=== PATIENT | female | born 1950 | race Caucasian/White ===

== ENCOUNTER 2018-01-06 21:17 | Observation (INO) | payer MEDICARE, OTHER ==
[2018-01-06] MEDS ORDERED: Dextrose 50% Abboject 50 ML SYRINGE ONE (21:58)
[2018-01-06 22:00] LABS: #Basophils 0.1 thou/uL (0.0-0.2); #Eosinphils 0.1 thou/uL (0.0-0.7); #Lymphocytes 4.8 thou/uL (1.20-3.40); #Monocytes 1.1 thou/uL (0.11-0.59); #Neutrophils 8.2 thou/uL (1.40-6.50); %Lymphocytes 33.2 % (21.0-51.0); %Monocytes 7.5 % (0.0-10.0); %Neutrophils 57.3 % (42.0-75.0); Hemoglobin 15.4 g/dL (12.0-16.0); Mean Corpuscular HGB CONC 34.3 g/dL (32.0-36.0); Mean Corpuscular Hemoglobin 31.6 pg (27.0-31.0); Mean Corpuscular Volume 92.1 fL (78.0-98.0); Mean Platelet Volume 6.9 fL (7.4-10.4); Platelet Count 245 thou/uL (130-400); RBC Distribution Width 12.1 % (11.5-14.5); Red Blood Cell (RBC) Count 4.87 mill/uL (4.20-5.40); White Blood Cell (WBC) Count 14.4 thou/uL (4.8-10.8)
--- NOTE | 2018-01-06 22:04 | RAD ---
PORTABLE UPRIGHT FRONTAL CHEST RADIOGRAPH 01/06/18 COMPARISON: 06/28/15 HISTORY: Altered mental status. FINDINGS: Stable cervical spine hardware present, incompletely assessed on this exam. Stable postoperative clip s noted in right upper quadrant of abdomen. There is atherosclerotic calcification in the aortic arch . There is no pneumothorax, pleural fluid, focal consolidation or alveolar edema. IMPRESSION: No acute findings. POS: [facility]
[2018-01-06 22:05] LABS: PTT 25.6 SEC (22.9-36.1); Prothrombin Time 13.6 SEC (12.0-14.7)
[2018-01-06 22:12] LABS: Acetaminophen Less than 6.0 mcg/mL (10.0-30.0); Alcohol Less than 10 mg/dL (Less than 10); Lipase 22 U/L (8-78); Salicylate Less than 8.0 mg/dL (15.0-30.0)
--- NOTE | 2018-01-06 22:12 | CT ---
HEAD CT WITHOUT CONTRAST: 01/06/18 COMPARISON: 05/28/09. HISTORY: Blurred vision and slurred speech, right sided facial droop. TECHNIQUE: Serial axial CT imaging at 5 mm intervals from vertex through skull base without contrast. FINDINGS: There is mucosal thickening involving the maxillary sinus on the right and the sphenoid sinus on the right. There is no displaced calvarial fracture. There is no intracranial hemorrhage, midline shift, mass effect or ventricular enlargement. IMPRESSION: No acute findings. Results called to Dr. Merida at 9:36 p.m., 01/06/18. Code CR POS: [facility]
[2018-01-06 22:16] LABS: CKMB 1.5 ng/mL (0-6.6); Troponin I 0.018 ng/mL (< 0.028)
[2018-01-06 22:22] LABS: ALT (SGPT) 12 U/L (8-55); AST (SGOT) 14 U/L (5-34); Albumin 4.6 g/dL (3.4-4.8); Alkaline Phosphatase 68 U/L (40-150); Anion Gap 11 mmol/L (10-20); BUN (Urea Nitrogen) 23 mg/dL (9.8-20.1); Bilirubin, Total 1.2 mg/dL (0.2-1.2); CK (CPK) 36 U/L (29-168); Calc. Creatinine Clearance 0 mL/min (70-130); Carbon Dioxide 26 mmol/L (23-31); Chloride 106 mmol/L (98-107); Estimated GFR-MDRD 52; Globulin 2.4 g/dL (2.4-3.5); Magnesium 2.5 mg/dL (1.6-2.6); Sodium 139 mmol/L (136-145)
[2018-01-06 23:06] LABS: Glucose 121 mg/dL (80-115)
[2018-01-06 23:50] LABS: Bilirubin Negative (Negative); Blood, Urine Negative (Negative); Clarity CLEAR (Clear); Glucose, Urine (Dipstick) 100 mg/dL (Negative); Leukocyte Trace (Negative); Nitrite Negative (Negative); Protein, Urine (Dipstick) Negative (Neg-Trace); Specific Gravity, Urine 1.008 (1.002-1.036); Urobilinogen 0.2 mg/dL (0.2-1.0); pH, Urine 5.5 (5.0-9.0)
[2018-01-06 23:53] LABS: Bacteria/HPF None Seen HPF (None Seen); Hyaline Casts/LPF 0-3 HYALINE CAST LPF (0-3 Hyaline); Pathc Cast-AUWi Flag 0.58 (0-2.49); RBC/HPF None Seen HPF (0-3); Squamous Epithelial 0-3 HPF (0-3); WBC/HPF 0-3 HPF (0-3)
[2018-01-06 23:58] LABS: Amphetamine Not Detected (NotDetected); Barbiturates Screen Not Detected (NotDetected); Benzodiazepine Screen Not Detected (NotDetected); Cocaine Metabolite Screen Not Detected (NotDetected); Medtox Control Line Valid? VALID (VALID); Medtox Reader # READER 1; Methadone Not Detected (NotDetected); Methamphetamine Not Detected (NotDetected); Opiate Screen Not Detected (NotDetected); Oxycodone Screen Not Detected (NotDetected); Phencyclidine (PCP) Not Detected (NotDetected); THC/Cannabinoid Screen Not Detected (NotDetected); Tricyclic Screen Detected (NotDetected)
[2018-01-07] MEDS ORDERED: Pregabalin 50 MG CAP PO SCH (04:45)
[2018-01-07] MEDS ORDERED: rOPINIRole HCl 1 MG TAB PO SCH ×2 (04:45→21:00)
[2018-01-07 05:29] VITALS: BMI 37.6
[2018-01-07] MEDS: Dextrose 5 %-0.45 % NaCl 1,000 ML IV SCH ×2 (05:41→12:52)
[2018-01-07 08:36] LABS: #Basophils 0.1 thou/uL (0.0-0.2); #Eosinphils 0.1 thou/uL (0.0-0.7); #Lymphocytes 4.1 thou/uL (1.20-3.40); #Monocytes 0.9 thou/uL (0.11-0.59); #Neutrophils 5.2 thou/uL (1.40-6.50); %Basophils 0.8 % (0.0-1.0); %Eosinophils 1.4 % (0.0-10.0); %Lymphocytes 39.3 % (21.0-51.0); %Monocytes 8.8 % (0.0-10.0); %Neutrophils 49.7 % (42.0-75.0); Hemoglobin 13.8 g/dL (12.0-16.0); Mean Corpuscular HGB CONC 33.5 g/dL (32.0-36.0); Mean Corpuscular Hemoglobin 31.1 pg (27.0-31.0); Mean Corpuscular Volume 93.1 fL (78.0-98.0); Mean Platelet Volume 7.5 fL (7.4-10.4); Platelet Count 207 thou/uL (130-400); RBC Distribution Width 12.3 % (11.5-14.5); Red Blood Cell (RBC) Count 4.44 mill/uL (4.20-5.40); White Blood Cell (WBC) Count 10.4 thou/uL (4.8-10.8)
[2018-01-07 09:21] LABS: Anion Gap 7 mmol/L (10-20); BUN (Urea Nitrogen) 21 mg/dL (9.8-20.1); Calc. Creatinine Clearance 99 mL/min (70-130); Carbon Dioxide 28 mmol/L (23-31); Chloride 111 mmol/L (98-107); Estimated GFR-MDRD 61; Glucose 116 mg/dL (80-115); Magnesium 2.4 mg/dL (1.6-2.6); Potassium 3.9 mmol/L (3.5-5.1); Sodium 142 mmol/L (136-145)
[2018-01-07] MEDS ORDERED: Ondansetron HCl/PF 4 MG/2 ML Vial IVP PRN (12:24)
[2018-01-07] MEDS ORDERED: Ondansetron ODT 4 MG TAB PO PRN (12:24)
[2018-01-07] MEDS ORDERED: Acetaminophen 650 MG Suppository PR PRN (12:24)
[2018-01-07] MEDS ORDERED: hydrOXYzine 10 MG TAB PO PRN (12:24)
[2018-01-07] MEDS ORDERED: Acetaminophen 325 MG TAB PO PRN (12:24)
[2018-01-07] MEDS ORDERED: Enoxaparin Sodium 40 MG/0.4 ML SYRINGE SC SCH (12:30)
[2018-01-07] MEDS: Acetaminophen/Codeine 30-300mg Tablet PO PRN (12:40)
[2018-01-07] MEDS: Pregabalin 50 MG CAP PO SCH ×2 (15:13→22:15)
[2018-01-07] MEDS ORDERED: Nortriptyline 10 MG CAP PO SCH (21:00)
[2018-01-07] MEDS ORDERED: Famotidine 20 MG TAB PO SCH (21:00)
[2018-01-07] MEDS: levETIRAcetam 500 mg/5 ml Oral Solution PO SCH (22:20)
[2018-01-08] MEDS: Acetaminophen/Codeine 30-300mg Tablet PO PRN ×2 (01:04→07:26)
[2018-01-08] MEDS ORDERED: Levothyroxine Sodium 25 MCG TAB PO SCH ×2 (06:00→09:00)
[2018-01-08 08:04] VITALS: BP 120/58; TEMP 97.8
[2018-01-08] MEDS: levETIRAcetam 500 mg/5 ml Oral Solution PO SCH (08:21)
[2018-01-08] MEDS: Pregabalin 50 MG CAP PO SCH (08:21)
[2018-01-08] MEDS ORDERED: Enoxaparin Sodium 40 MG/0.4 ML SYRINGE SC SCH (09:00)
[2018-01-08] MEDS ORDERED: Lisinopril 10 MG TAB PO SCH (09:00)
--- NOTE | 2018-01-08 10:44 | DIS ---
DATE OF ADMISSION: 01/07/2018 DATE OF DISCHARGE: 01/08/2018 PRIMARY CARE PHYSICIAN: Dr. Lisbet Patterson. DISCHARGE DIAGNOSES: 1. Hypoglycemia. 2. Metabolic encephalopathy, resolved. 3. Essential hypertension. 4. Degenerative joint disease. 5. Raynaud's disease. 6. Hypothyroidism. CONSULTATIONS: None. PROCEDURES: None. HISTORY AND PHYSICAL: Ms. Gamble is a 67-year-old female, who became altered and almost unresponsive while at [facility] the night of admission. She presented to the emergency department and was found to h ave a field blood glucose of 130, but 68 on arrival to the emergency department. She was given D50 a nd we were called for admission. HOSPITAL COURSE: The patient was accepted by the rug repairer and placed on observation. She was admi tted the following morning by myself. At that point, she was back to her baseline, but did not quite "feel right." She was observed overnight, and this morning, was feeling back to her baseline, able to get up and walk around and had no episodes of hypoglycemia. She was, otherwise, stable for discha rge with outpatient followup. PHYSICAL EXAMINATION: The patient was seen and examined on the day of discharge. Discharge plan and disposition discussed with patient and her [id number] at the bedside. DISCHARGE MEDICATIONS: Resume all home medications. No new medications added. FOLLOWUP APPOINTMENT: Dr. Patterson within a week. DISCHARGE CONDITION: Stable. DISPOSITION: Being discharged to home via private vehicle. DISCHARGE ACTIVITY: As tolerated. DISCHARGE DIET: Heart healthy recommended.
--- NOTE | 2018-01-08 11:09 | HP ---
DATE OF ADMISSION: 01/07/2018 TIME OF SERVICE: 09:45 PRIMARY CARE PHYSICIAN: Lisbet Patterson M.D. CHIEF COMPLAINT: Altered mental status. HISTORY OF PRESENT ILLNESS: Ms. Gamble is a 67-year-old white female with a history of Raynaud's dis ease, hypertension, GERD, and degenerative joint disease, who presented to the emergency department v ia EMS. The patient was at [facility], and while there, became unresponsive. She remembers feeling kind of "funny " and then everything kind of fading out. She denied any chest pain or shortness of breath, no palpi tations, no nausea or vomiting. On arrival, EMS noted to her to have normal vital signs, glucose was 130. She was transported to our emergency department for evaluation. On arrival here, her glucose was 68. She was given D50. She had a normal lab except for an elevated white blood cell count and negative workup otherwise. We were subsequently called for admit. The patient was accepted by the yam curer and held overnight. Subsequently, being admitted this [facility]. She has no other current complaints other than right leg pain. No fevers or chills, no nausea, vomit ing, no diarrhea, constipation. She "does not feel right." PAST MEDICAL HISTORY: 1. Raynaud's disease. 2. Hypertension, essential. 3. Gastroesophageal reflux disease. 4. Anxiety and depression. PAST SURGICAL HISTORY: 1. Cholecystectomy. 2. Bilateral tubal ligation, remotely. 3. Appendectomy. 4. Left arm surgery for nerve damage. 5. Partial thyroidectomy on the right. 6. C-spine surgery. 7. x2. 8. Umbilicus repair after rupture as an infant. 9. Right knee surgery x2. She is postop a knee revision procedure done on 02/06. FAMILY HISTORY: Negative for clotting or bleeding disorder. No immune dysfunction. SOCIAL HISTORY: Negative for alcohol, tobacco, or drug. She is . accompanies her. REVIEW OF SYSTEMS: All systems reviewed and negative except stated as per HPI. CURRENT MEDICATIONS: 1. Levothyroxine. 2. Requip 4 mg p.o. at bedtime. 3. Lisinopril 10 mg daily. 4. Keppra 250 p.o. b.i.d. 5. Lyrica 200 mg p.o. t.i.d. 6. Nortriptyline 20 mg p.o. at bedtime. 7. Tylenol #3 p.r.n. 8. Omeprazole 40 mg daily. 9. Ambien 10 mg p.o. at bedtime. 10. Hydroxyzine 10 mg p.o. as needed for itching. ALLERGIES: 1. BETAMETHASONE. 2. GABAPENTIN, though she takes Lyrica fine. 3. HEPARIN. 4. IODINE. 5. PENICILLINS. 6. BETADINE. 7. SHELLFISH. PHYSICAL EXAMINATION: VITAL SIGNS: Temperature current is 98.1, pulse 61, blood pressure 149/88, respiratory rate 14, satt ing 92%-98% on room air. GENERAL: She is awake. She is alert. She is oriented x3. She is a well-developed, well-nourished, obese elderly white female, appears to be in no acute distress. HEENT: Normocephalic, atraumatic. Pupils equal, round, reactive to light bilaterally. Mucous membr anes are moist. I see no visible lesions, no thrush. NECK: Supple. She has no lymphadenopathy, JVD, or thyromegaly. She has normal carotid upstroke. I do not appreciate bruits. LUNGS: Clear. No wheeze, no rales, no rhonchi. No prolonged expiratory phase. CARDIOVASCULAR: Normal S1 and S2. Slightly bradycardic. She has no audible murmurs. ABDOMEN: Obese. It is nontender. I cannot palpate internal organs. No rebound, rigidity or guardi ng. EXTREMITIES: No cyanosis, no clubbing. She has got chronic edema and chronic superficial varicositi es. Does have tenderness to palpation, medial posterior right knee. SKIN: Otherwise, warm, moist, and well perfused without any other rashes or lesions. MUSCULOSKELETAL EXAM: Otherwise, normal to inspection. No evidence of joint inflammation or palpabl e effusions. NEUROLOGIC EXAM: Her cranial nerves II-XII are grossly intact. She has no focal deficits, normal sp eech, and 5/5 strength. LABORATORY EVALUATION: CBC on her presentation showed a white count elevated at 14.4 with a normal d ifferential, hemoglobin was 15.4, hematocrit of 44.9, platelet count was 245,000. INR was 1.0. CMP was normal with a sodium of 139, potassium 4.0, chloride 106, bicarb 26, BUN 23, creatinine 1.05, glu cose 121 with a D-stick of 60 in the emergency department, 25 minutes prior. Magnesium was 2.5. Brynn er function within normal limits. BNP slightly elevated at 198.4 and cardiac biomarkers negative. T SH was 1.74, lipase 22. Urinalysis was normal. Urine drug screen was significant for tricyclics, but otherwise negative. RADIOGRAPHIC STUDIES: She had a CT scan of the brain that was negative for acute intracranial abnorm alities and chest x-ray showed no acute cardiopulmonary disease. ASSESSMENT AND PLAN: 1. Metabolic encephalopathy, resolved by this morning. The patient was slightly hypoglycemic on pre sentation, may have been more profound, had not had time to be registered. She did get D50 in the ER with resolution of her symptoms. We will watch her overnight, watch her on telemetry. We will get another set of biomarkers and we will reevaluate in the morning. 2. Hypertension. Continue home medications. 3. Degenerative joint disease. She does have tenderness to palpation to her medial right knee. Mccarthy s have normal pain. We will watch her overnight. No further intervention. Continue home medication s. 4. Degenerative joint disease. 5. Obesity.
== END 2018-01-08 10:48 | disposition home or self-care (01) ==
LOC: ERS 21:17 → 2SW 01-07 02:53
PROVIDERS: ADMIT Internal Medicine; ATTEND Internal Medicine
DX: G93.41 Metabolic encephalopathy (principal); E16.2 Hypoglycemia, unspecified; I10 Essential (primary) hypertension; I73.00 Raynaud's syndrome without gangrene; E03.9 Hypothyroidism, unspecified; M19.90 Unspecified osteoarthritis, unspecified site; K21.9 Gastro-esophageal reflux disease without esophagitis; Z91.041 Radiographic dye allergy status; Z88.0 Allergy status to penicillin; Z91.013 Allergy to seafood; Z79.899 Other long term (current) drug therapy
CPT/HCPCS: 51701; 70450; 71045; 80048; 80306; 80307; 82140 ×2; 82533; 82550; 82553; 82962 ×3; 83690; 83735 ×2; 83880; 84484; 85025; 85610; 85730; 86850; 86900; 86901; 93005; 96361; 96374; 99285; G0378 ×2; 36415; 36416; 80053; 81003; 81015; 84443; A4353

== ENCOUNTER 2018-12-28 12:22 | Emergency (ER) | payer MEDICARE, OTHER ==
[2018-12-28] MEDS ORDERED: Acetaminophen 500 MG TAB ONE (12:47)
[2018-12-28] MEDS ORDERED: diphenhydrAMINE 50 MG/ML VIAL ONE (12:47)
[2018-12-28] MEDS ORDERED: Prochlorperazine 10 MG/2 ML VIAL IVP SCH (13:00)
--- NOTE | 2018-12-28 13:39 | CT ---
CT BRAIN: Date: 12/28/18 PROVIDED CLINICAL HISTORY: Headache. FINDINGS: Comparison made with study dated 01/06/18. The ventricular system appears normal in size and morphology. There is no evidence for intracranial h emorrhage or mass effect. The extracranial soft tissues and osseous structures demonstrate mucosal th ickening involving the left maxillary sinus and sphenoid sinus without evidence for an acute process. IMPRESSION: 1. No evidence for an acute intracranial abnormality. 2. Paranasal sinus mucosal disease. POS: [facility]
== END 2018-12-28 15:40 | disposition home or self-care (01) ==
LOC: ERS 12:22
DX: R51 Headache (principal); I10 Essential (primary) hypertension; K21.9 Gastro-esophageal reflux disease without esophagitis; F41.9 Anxiety disorder, unspecified; F32.9 Major depressive disorder, single episode, unspecified
CPT/HCPCS: 70450; 93005; 96361; 96374; 96375; J0780; J1200

== ENCOUNTER 2021-07-15 14:27 | Emergency (ER) | payer MEDICARE ==
[2021-07-15] MEDS ORDERED: Ondansetron PF 4 MG/2 ML Vial ONE (16:08)
[2021-07-15] MEDS ORDERED: Morphine 4 MG/ML VIAL ONE ×2 (16:08→20:57)
[2021-07-15 16:54] LABS: Bilirubin Negative (Negative); Blood, Urine Negative (Negative); Clarity Clear (Clear); Glucose, Urine (Dipstick) Normal (Negative); Ketone, Urine Negative (Negative); Leukocyte Negative Leu/uL (Negative); Nitrite Negative (Negative); Protein, Urine (Dipstick) Negative (Neg-Trace); Specific Gravity, Urine 1.015 (1.002-1.036); Urobilinogen Normal mg/dL (Less than 2); pH, Urine 5.5 (5.0-9.0)
[2021-07-15 17:17] LABS: #Basophils 0.1 thou/uL (0.0-0.2); #Eosinphils 0.2 thou/uL (0.0-0.7); #Lymphocytes 1.2 thou/uL (1.20-3.40); #Monocytes 0.4 thou/uL (0.11-0.59); #Neutrophils 4.6 thou/uL (1.40-6.50); %Eosinophils 3.5 % (0.0-10.0); %Lymphocytes 18.3 % (21.0-51.0); %Monocytes 6.6 % (0.0-10.0); %Neutrophils 70.5 % (42.0-75.0); Hemoglobin 13.7 g/dL (12.0-16.0); Mean Corpuscular HGB CONC 32.1 g/dL (32.0-36.0); Mean Corpuscular Hemoglobin 30.7 pg (27.0-31.0); Mean Corpuscular Volume 95.6 fL (78.0-98.0); Mean Platelet Volume 7.3 fL (7.4-10.4); Platelet Count 171 thou/uL (130-400); RBC Distribution Width 13.4 % (11.5-14.5); Red Blood Cell (RBC) Count 4.47 mill/uL (4.20-5.40); White Blood Cell (WBC) Count 6.6 thou/uL (4.8-10.8)
[2021-07-15 17:34] LABS: ALT (SGPT) 9 U/L (8-55); AST (SGOT) 12 U/L (5-34); Albumin 3.8 g/dL (3.4-4.8); Alkaline Phosphatase 56 U/L (40-110); Anion Gap 14 mmol/L (10-20); BUN (Urea Nitrogen) 17 mg/dL (9.8-20.1); Bilirubin, Total 0.8 mg/dL (0.2-1.2); Calc. Creatinine Clearance 0 mL/min (70-130); Carbon Dioxide 24 mmol/L (23-31); Chloride 107 mmol/L (98-107); Globulin 2.1 g/dL (2.4-3.5); Glucose 123 mg/dL (83-110); Lipase 7 U/L (8-78); Potassium 4.1 mmol/L (3.5-5.1); Protein, Total 5.9 g/dL (5.8-8.1); Sodium 141 mmol/L (136-145)
[2021-07-15] MEDS ORDERED: Lidocaine Viscous Sol 2% 15 ml UD Cup ONE (18:18)
[2021-07-15] MEDS ORDERED: Metoclopramide HCl 10 MG/2 ML VIAL ONE (18:19)
[2021-07-15] MEDS ORDERED: diphenhydrAMINE 50 MG/ML VIAL ONE (18:19)
[2021-07-15] MEDS ORDERED: Mag-Al 1200 mg/1200 mg/30 ML UDCUP ONE (18:19)
== END 2021-07-15 21:07 | disposition home or self-care (01) ==
LOC: ERS 14:27
DX: R07.89 Other chest pain (principal); G89.29 Other chronic pain; M79.604 Pain in right leg; I10 Essential (primary) hypertension; K21.9 Gastro-esophageal reflux disease without esophagitis; Z79.899 Other long term (current) drug therapy; Z79.82 Long term (current) use of aspirin
CPT/HCPCS: 36415; 71045; 74176; 80053; 81003; 83690; 84484; 85025; 93005; 94760; 96365; 96366; 96375; 96376; J1200; J2270; J2405; J2765

== ENCOUNTER 2023-06-30 07:25 | Emergency (ER) | payer MEDICARE ==
[2023-06-30] MEDS ORDERED: Ketorolac Tromethamine 30 MG (1 mL) VIAL ONE (07:45)
[2023-06-30] MEDS ORDERED: HYDROcodone/Acetaminophen 7.5/325 mg Tablet ONE (08:35)
[2023-06-30] MEDS ORDERED: Metoclopramide HCl 10 MG TAB ONE (08:36)
[2023-06-30] MEDS ORDERED: Orphenadrine Citrate 60 MG/2 ML VIAL ONE (08:38)
[2023-06-30] MEDS ORDERED: diphenhydrAMINE 25 MG CAP ONE (10:19)
== END 2023-06-30 10:24 | disposition home or self-care (01) ==
LOC: ERS 07:25
DX: R51.9 Headache, unspecified (principal); I10 Essential (primary) hypertension; E03.9 Hypothyroidism, unspecified; Z79.899 Other long term (current) drug therapy
CPT/HCPCS: 96372; 99284; J1885; J2360

== ENCOUNTER 2023-09-30 01:25 | Inpatient (IN) | payer MEDICARE ==
[2023-09-30] MEDS ORDERED: Acetaminophen 650 MG Suppository PR PRN (03:05)
[2023-09-30] MEDS ORDERED: Electrolyte Replacement Protocol 1 EACH IVPB SCH (03:05)
[2023-09-30] MEDS ORDERED: Ondansetron ODT 4 MG TAB PO PRN (03:07)
[2023-09-30] MEDS ORDERED: Dexamethasone 1 MG TAB PO SCH (03:15)
[2023-09-30] MEDS: Acetaminophen 650 MG/20.3 ML UDCUP PO PRN (03:59)
[2023-09-30] MEDS: Lactated Ringer's 1,000 ML IV SCH (04:31)
[2023-09-30] MEDS: rOPINIRole HCl 2 MG TAB PO SCH ×2 (04:32→20:30)
[2023-09-30] MEDS: niCARdipine 25 MG in Sodium Chloride 0.9% 250 ML 250 ML IVPB PRN (04:46)
[2023-09-30] MEDS: Levothyroxine Sodium 25 MCG TAB PO SCH (05:09)
[2023-09-30 05:20] LABS: #Basophils Less than 0.03 10x3/uL (0.0-0.2); #Eosinphils Less than 0.03 10x3/uL (0.0-0.7); %Basophils 0.1 % (0.0-1.0); %Lymphocytes 7.5 % (21.0-51.0); %Monocytes 4.2 % (0.0-10.0); %Neutrophils 86.9 % (42.0-75.0); Hematocrit 44.4 % (36.0-47.0); Hemoglobin 14.6 g/dL (12.0-16.0); Mean Corpuscular HGB CONC 32.9 g/dL (32.0-36.0); Mean Corpuscular Hemoglobin 30.9 pg (27.0-31.0); Mean Corpuscular Volume 93.9 fL (78.0-98.0); Mean Platelet Volume 10.1 fL (7.4-10.4); Platelet Count 194 10x3/uL (130-400); RBC Distribution Width 13.2 % (11.5-14.5); Red Blood Cell (RBC) Count 4.73 mill/uL (4.20-5.40)
[2023-09-30 05:39] LABS: Lactic Acid 3.4 mmol/L (0.5-2.2)
[2023-09-30 05:50] LABS: Anion Gap 19 mmol/L (10-20); BUN (Urea Nitrogen) 16 mg/dL (9.8-20.1); Calc. Creatinine Clearance 96 mL/min (70-130); Calcium 9.1 mg/dL (7.8-10.44); Carbon Dioxide 14 mmol/L (23-31); Chloride 108 mmol/L (98-107); Estimated GFR 68; Glucose 330 mg/dL (83-110); Potassium 4.1 mmol/L (3.5-5.1); Sodium 137 mmol/L (136-145)
[2023-09-30] MEDS: Lisinopril 10 MG TAB PO SCH (08:23)
[2023-09-30] MEDS: Metoprolol Tartrate 25 MG TAB PO SCH (08:23)
[2023-09-30] MEDS: Senokot S 8.6-50 MG TAB PO SCH (08:24)
[2023-09-30] MEDS: Famotidine 20 MG TAB PO SCH (08:25)
[2023-09-30] MEDS: Pantoprazole DR 40 MG TAB PO SCH (08:25)
[2023-09-30] MEDS: Calcium Carbonate 600 MG + Vit D TAB PO SCH (08:25)
[2023-09-30] MEDS: levETIRAcetam 500 mg/5 ml Oral Solution PO SCH (08:26)
[2023-09-30] MEDS: Dexamethasone 4 MG TAB PO SCH (08:26)
[2023-09-30] MEDS: Lactulose 20 GM (30 mL) UDCUP PO SCH (08:26)
[2023-09-30] MEDS: Polyethylene Glycol 3350 17 GM Packet PO SCH (08:27)
[2023-09-30] MEDS: Aripiprazole 2 MG TAB PO SCH (08:30)
[2023-09-30] MEDS: Ondansetron PF 4 MG/2 ML Vial IVP PRN (08:36)
[2023-09-30] MEDS ORDERED: Glucagon 1 MG/ML KIT IM PRN (09:46)
[2023-09-30] MEDS ORDERED: Dextrose 5% in Water 1,000 ML IV PRN (09:46)
[2023-09-30] MEDS ORDERED: Dextrose 50% Abboject 50 ML SYRINGE SLOW IVP PRN (09:46)
[2023-09-30] MEDS: Lidocaine 4% Patch TD SCH ×3 (10:13→10:42)
[2023-09-30] MEDS: Furosemide 20 MG (2 mL) VIAL SLOW IVP SCH (10:42)
[2023-09-30] MEDS: HumaLOG 300 UNITS/3 ML VIAL SC PRN ×2 (10:49→20:39)
[2023-09-30] MEDS: Pregabalin 75 MG CAP PO SCH ×2 (10:52→14:53)
[2023-09-30] MEDS ORDERED: hydrALAZINE 20 MG/ML VIAL SLOW IVP PRN (12:28)
[2023-09-30] MEDS: Acetaminophen/Codeine 30-300mg Tablet PO PRN (16:16)
[2023-09-30] MEDS: Pregabalin 50 MG CAP PO SCH (20:31)
[2023-09-30] MEDS: Estradiol 0.01% Vaginal Cream 42.5 gm Tube VAG SCH (21:39)
[2023-09-30] MEDS: Zolpidem Tartrate 5 MG TAB PO SCH (21:40)
[2023-09-30] MEDS: Transdermal Patch Removal TOP SCH (21:41)
[2023-10-01 05:04] VITALS: BMI 38.5
[2023-10-01 06:12] LABS: #Basophils Less than 0.03 10x3/uL (0.0-0.2); #Eosinphils Less than 0.03 10x3/uL (0.0-0.7); %Basophils 0.1 % (0.0-1.0); %Lymphocytes 10.9 % (21.0-51.0); %Monocytes 3.8 % (0.0-10.0); %Neutrophils 84.1 % (42.0-75.0); Hematocrit 38.6 % (36.0-47.0); Hemoglobin 13.3 g/dL (12.0-16.0); Mean Corpuscular HGB CONC 34.5 g/dL (32.0-36.0); Mean Corpuscular Hemoglobin 31.4 pg (27.0-31.0); Mean Corpuscular Volume 91.3 fL (78.0-98.0); Mean Platelet Volume 10.6 fL (7.4-10.4); Platelet Count 194 10x3/uL (130-400); RBC Distribution Width 13.4 % (11.5-14.5); Red Blood Cell (RBC) Count 4.23 mill/uL (4.20-5.40)
[2023-10-01 06:35] LABS: Anion Gap 14 mmol/L (10-20); BUN (Urea Nitrogen) 20 mg/dL (9.8-20.1); Calc. Creatinine Clearance 102 mL/min (70-130); Carbon Dioxide 23 mmol/L (23-31); Chloride 106 mmol/L (98-107); Estimated GFR 72; Glucose 208 mg/dL (83-110); Potassium 4.1 mmol/L (3.5-5.1); Sodium 139 mmol/L (136-145)
[2023-10-01] MEDS: Zolpidem Tartrate 5 MG TAB PO SCH (23:07)
[2023-10-02 06:24] LABS: #Basophils 0.03 10x3/uL (0.0-0.2); #Eosinphils Less than 0.03 10x3/uL (0.0-0.7); %Basophils 0.3 % (0.0-1.0); %Lymphocytes 14.2 % (21.0-51.0); %Neutrophils 76.9 % (42.0-75.0); Hematocrit 41.4 % (36.0-47.0); Hemoglobin 13.6 g/dL (12.0-16.0); Mean Corpuscular HGB CONC 32.9 g/dL (32.0-36.0); Mean Corpuscular Hemoglobin 31.3 pg (27.0-31.0); Mean Corpuscular Volume 95.2 fL (78.0-98.0); Mean Platelet Volume 10.6 fL (7.4-10.4); Platelet Count 181 10x3/uL (130-400); RBC Distribution Width 13.2 % (11.5-14.5); Red Blood Cell (RBC) Count 4.35 mill/uL (4.20-5.40)
[2023-10-02 06:43] LABS: Anion Gap 14 mmol/L (10-20); BUN (Urea Nitrogen) 23 mg/dL (9.8-20.1); Calc. Creatinine Clearance 112 mL/min (70-130); Calcium 8.8 mg/dL (7.8-10.44); Carbon Dioxide 21 mmol/L (23-31); Chloride 106 mmol/L (98-107); Estimated GFR 79; Glucose 213 mg/dL (83-110); Potassium 4.6 mmol/L (3.5-5.1); Sodium 136 mmol/L (136-145)
[2023-10-02] MEDS: Dexamethasone 4 MG TAB PO SCH (08:59)
[2023-10-02] MEDS: Apixaban 5 MG TAB PO SCH ×2 (15:01→20:57)
[2023-10-02] MEDS: Labetalol HCl 100 MG/20 ML VIAL SLOW IVP PRN (21:38)
[2023-10-02] MEDS: Zolpidem Tartrate 5 MG TAB PO PRN (23:01)
[2023-10-03 00:49] LABS: INR-International Normal Ratio 1.4; PTT 28.3 sec (22.9-36.1); Prothrombin Time 17.6 sec (12.0-14.7)
[2023-10-03 00:50] LABS: D-Dimer Test 0.92 mcg/mL (0.27-0.43)
[2023-10-03 07:45] LABS: #Basophils Less than 0.03 10x3/uL (0.0-0.2); #Eosinphils Less than 0.03 10x3/uL (0.0-0.7); %Basophils 0.2 % (0.0-1.0); %Lymphocytes 14.6 % (21.0-51.0); %Monocytes 7.8 % (0.0-10.0); %Neutrophils 75.3 % (42.0-75.0); Hematocrit 40.6 % (36.0-47.0); Hemoglobin 13.3 g/dL (12.0-16.0); Mean Corpuscular HGB CONC 32.8 g/dL (32.0-36.0); Mean Corpuscular Hemoglobin 30.4 pg (27.0-31.0); Mean Corpuscular Volume 92.9 fL (78.0-98.0); Mean Platelet Volume 10.9 fL (7.4-10.4); Platelet Count 189 10x3/uL (130-400); RBC Distribution Width 13.1 % (11.5-14.5); Red Blood Cell (RBC) Count 4.37 mill/uL (4.20-5.40)
[2023-10-03 08:07] LABS: Anion Gap 11 mmol/L (10-20); BUN (Urea Nitrogen) 23 mg/dL (9.8-20.1); Calc. Creatinine Clearance 115 mL/min (70-130); Calcium 8.8 mg/dL (7.8-10.44); Carbon Dioxide 23 mmol/L (23-31); Chloride 107 mmol/L (98-107); Estimated GFR 80; Glucose 211 mg/dL (83-110); Potassium 4.2 mmol/L (3.5-5.1); Sodium 137 mmol/L (136-145)
[2023-10-03] MEDS: HYDROcodone/Acetaminophen 5/325 mg Tablet PO PRN (18:44)
[2023-10-04] MEDS: Dexamethasone 4 MG TAB PO SCH (08:23)
[2023-10-04 09:08] LABS: Anion Gap 13 mmol/L (10-20); BUN (Urea Nitrogen) 22 mg/dL (9.8-20.1); Calc. Creatinine Clearance 99 mL/min (70-130); Carbon Dioxide 25 mmol/L (23-31); Chloride 104 mmol/L (98-107); Estimated GFR 67; Glucose 218 mg/dL (83-110); Potassium 5.2 mmol/L (3.5-5.1); Sodium 137 mmol/L (136-145)
[2023-10-04 09:44] LABS: #Basophils 0.03 10x3/uL (0.0-0.2); #Eosinphils Less than 0.03 10x3/uL (0.0-0.7); %Basophils 0.3 % (0.0-1.0); %Lymphocytes 13.8 % (21.0-51.0); %Monocytes 6.3 % (0.0-10.0); %Neutrophils 75.7 % (42.0-75.0); Hematocrit 42.9 % (36.0-47.0); Hemoglobin 13.8 g/dL (12.0-16.0); Mean Corpuscular HGB CONC 32.2 g/dL (32.0-36.0); Mean Corpuscular Hemoglobin 30.9 pg (27.0-31.0); Mean Platelet Volume 11.3 fL (7.4-10.4); Platelet Count 195 10x3/uL (130-400); RBC Distribution Width 13.1 % (11.5-14.5); Red Blood Cell (RBC) Count 4.47 mill/uL (4.20-5.40)
[2023-10-04] MEDS: Amlodipine 5 MG TAB PO SCH (10:35)
[2023-10-04 12:32] LABS: Cardiolipin IgA Ab 2.1 APL-U/mL (<14 Negative); Cardiolipin IgG Ab 0.7 GPL-U/mL (<10 Negative); Cardiolipin IgM Ab 1.5 MPL-U/mL (<10 Negative); EliA APS New Method **** NEW METHOD ****
[2023-10-04 14:05] LABS: ANA Symphony (Qualitative) POSITIVE (Negative); CENP IgG Antibody Greater than 240.0 EliAU/mL (<7 Negative); Jo-1 IgG Antibody Less than 0.3 EliAU/mL (<7 Negative); RNP70 IgG Antibody 1.3 EliAU/mL (<7 Negative); SSA/Ro IgG Antibody 0.4 EliAU/mL (<7 Negative); SSB/La IgG Antibody Less than 0.4 EliAU/mL (<7 Negative); Scleroderma-70 IgG Antibody Less than 0.6 EliAU/mL (<7 Negative); dsDNA IgG Antibody Less than 0.6 IU/mL (<10 Negative)
[2023-10-04 14:41] LABS: Smith D IgG Antibody Less than 0.7 EliAU/mL (<7 Negative)
[2023-10-05 07:19] LABS: #Basophils 0.11 10x3/uL (0.0-0.2); %Basophils 0.8 % (0.0-1.0); %Eosinophils 0.7 % (0.0-10.0); %Lymphocytes 19.8 % (21.0-51.0); %Monocytes 7.5 % (0.0-10.0); %Neutrophils 66.5 % (42.0-75.0); Hematocrit 44.7 % (36.0-47.0); Hemoglobin 14.6 g/dL (12.0-16.0); Mean Corpuscular HGB CONC 32.7 g/dL (32.0-36.0); Mean Corpuscular Hemoglobin 30.6 pg (27.0-31.0); Mean Corpuscular Volume 93.7 fL (78.0-98.0); Mean Platelet Volume 10.7 fL (7.4-10.4); Platelet Count 193 10x3/uL (130-400); RBC Distribution Width 13.2 % (11.5-14.5); Red Blood Cell (RBC) Count 4.77 mill/uL (4.20-5.40)
[2023-10-05 07:42] LABS: Anion Gap 12 mmol/L (10-20); BUN (Urea Nitrogen) 22 mg/dL (9.8-20.1); Calc. Creatinine Clearance 109 mL/min (70-130); Calcium 8.9 mg/dL (7.8-10.44); Carbon Dioxide 25 mmol/L (23-31); Chloride 103 mmol/L (98-107); Estimated GFR 76; Glucose 171 mg/dL (83-110); Potassium 4.1 mmol/L (3.5-5.1); Sodium 136 mmol/L (136-145)
[2023-10-05] MEDS: Amlodipine 5 MG TAB PO SCH (08:34)
[2023-10-06 06:55] LABS: #Basophils 0.06 10x3/uL (0.0-0.2); %Basophils 0.4 % (0.0-1.0); %Eosinophils 1.2 % (0.0-10.0); %Lymphocytes 19.5 % (21.0-51.0); %Monocytes 6.8 % (0.0-10.0); %Neutrophils 67.4 % (42.0-75.0); Hematocrit 42.9 % (36.0-47.0); Hemoglobin 13.8 g/dL (12.0-16.0); Mean Corpuscular HGB CONC 32.2 g/dL (32.0-36.0); Mean Corpuscular Hemoglobin 30.9 pg (27.0-31.0); Mean Corpuscular Volume 96.2 fL (78.0-98.0); Mean Platelet Volume 11.7 fL (7.4-10.4); Platelet Count 164 10x3/uL (130-400); RBC Distribution Width 13.5 % (11.5-14.5); Red Blood Cell (RBC) Count 4.46 mill/uL (4.20-5.40)
[2023-10-06] MEDS: Dexamethasone 4 MG TAB PO SCH (08:08)
[2023-10-06 08:44] VITALS: BP 146/84; TEMP 97.7
[2023-10-06 09:02] LABS: Anion Gap 14 mmol/L (10-20); BUN (Urea Nitrogen) 24 mg/dL (9.8-20.1); Calc. Creatinine Clearance 109 mL/min (70-130); Calcium 9.2 mg/dL (7.8-10.44); Carbon Dioxide 27 mmol/L (23-31); Chloride 103 mmol/L (98-107); Estimated GFR 75; Glucose 161 mg/dL (83-110); Potassium 4.1 mmol/L (3.5-5.1); Sodium 140 mmol/L (136-145)
[2023-10-06 11:36] VITALS: BMI 40.0
[2023-10-07] MEDS ORDERED: Dexamethasone 1 MG TAB PO SCH (08:00)
[2023-10-07 12:10] LABS: HEX PHOS LA Tube 1 39.5 SEC; HEX PHOS LA Tube 2 37.5 SEC; Hexagonal Phospholipid Neut 1.9 SEC (0-8.0)
[2023-10-09] MEDS ORDERED: Apixaban 5 MG TAB PO SCH (09:00)
== END 2023-10-06 16:28 | DRG 305 ==
LOC: CCU 02:50 → T4-A 16:59
PROVIDERS: ADMIT Student in an Organized Health Care Education/Training Program; ATTEND Internal Medicine
DX: I16.1 Hypertensive emergency (principal); I82.411 Acute embolism and thrombosis of right femoral vein; E87.20 Acidosis, unspecified; Z68.41 Body mass index [BMI] 40.0-44.9, adult; E03.9 Hypothyroidism, unspecified; F41.9 Anxiety disorder, unspecified; G40.909 Epilepsy, unspecified, not intractable, without status epilepticus; G89.4 Chronic pain syndrome; M79.7 Fibromyalgia; G62.9 Polyneuropathy, unspecified; K59.00 Constipation, unspecified; K21.9 Gastro-esophageal reflux disease without esophagitis; I73.00 Raynaud's syndrome without gangrene; G25.81 Restless legs syndrome; R53.1 Weakness; R53.81 Other malaise; I16.0 Hypertensive urgency; Z98.890 Other specified postprocedural states; Z90.49 Acquired absence of other specified parts of digestive tract; Z79.899 Other long term (current) drug therapy; Z88.8 Allergy status to other drugs, medicaments and biological substances; Z88.0 Allergy status to penicillin; Z91.013 Allergy to seafood; Z79.890 Hormone replacement therapy; R11.2 Nausea with vomiting, unspecified; Z55.6 Problems related to health literacy
CPT/HCPCS: 36415; 36416; 51701; 70450; 71045; 74177; 78306; 80048; 80053; 81001; 82010; 83090; 83605; 84443; 84484; 85025; 85300; 85303; 85305; 85307; 85379; 85598; 85610; 85730; 86038; 86147; 86225; 86235; 86850; 86900; 86901; 87040; 87086; 93005; 93010; 93970; 94760; 96365; 96367; 96372; 96375; A9503; J0360; J1200; J1630; J1815; J1940; J2270; J2405; J2550; J2920; J2930; J7050; J7120; J8540; Q0162; Q9967; S0028

== ENCOUNTER 2024-04-08 19:19 | Inpatient (IN) | payer MEDICARE ==
[2024-04-08] MEDS ORDERED: Ondansetron PF 4 MG/2 ML Vial ONE (20:42)
[2024-04-08] MEDS ORDERED: Morphine 4 MG/ML VIAL ONE (20:42)
[2024-04-08] MEDS ORDERED: Pantoprazole 40 MG VIAL ONE (20:42)
[2024-04-08] MEDS ORDERED: Famotidine/PF 20 mg/2ml Vial ONE (20:43)
[2024-04-08 22:37] LABS: #Basophils 0.07 10x3/uL (0.0-0.2); %Basophils 0.8 % (0.0-1.0); %Eosinophils 1.2 % (0.0-10.0); %Monocytes 6.4 % (0.0-10.0); Hematocrit 42.8 % (36.0-47.0); Hemoglobin 14.3 g/dL (12.0-16.0); Mean Corpuscular HGB CONC 33.4 g/dL (32.0-36.0); Mean Corpuscular Hemoglobin 30.3 pg (27.0-31.0); Mean Corpuscular Volume 90.7 fL (78.0-98.0); Platelet Count 200 10x3/uL (130-400); RBC Distribution Width 13.4 % (11.5-14.5); Red Blood Cell (RBC) Count 4.72 mill/uL (4.20-5.40)
[2024-04-08 22:39] LABS: ALT (SGPT) 13 U/L (8-55); AST (SGOT) 18 U/L (5-34); Albumin 3.8 g/dL (3.4-4.8); Alkaline Phosphatase 76 U/L (40-110); Anion Gap 14 mmol/L (10-20); BUN (Urea Nitrogen) 12 mg/dL (9.8-20.1); Bilirubin, Total 1.5 mg/dL (0.2-1.2); Calc. Creatinine Clearance 0 mL/min (70-130); Calcium 8.9 mg/dL (7.8-10.44); Carbon Dioxide 24 mmol/L (23-31); Chloride 106 mmol/L (98-107); Estimated GFR 69; Globulin 2.4 g/dL (2.4-3.5); Glucose 124 mg/dL (83-110); Lipase 5 U/L (8-78); Potassium 3.6 mmol/L (3.5-5.1); Protein, Total 6.2 g/dL (5.8-8.1); Sodium 140 mmol/L (136-145)
[2024-04-08 22:43] LABS: Troponin I Less than 0.010 ng/mL (< 0.028)
[2024-04-08 23:22] LABS: Bacteria/HPF None Seen HPF (None Seen); Bilirubin Negative (Negative); Blood, Urine Negative (Negative); CAUTI Indications for Culture Pelvic or flank pain; Clarity Clear (Clear); Glucose, Urine (Dipstick) Normal (Negative); Ketone, Urine Trace mg/dL (Negative); Leukocyte Negative Leu/uL (Negative); Nitrite Negative (Negative); Protein, Urine (Dipstick) Negative (Neg-Trace); RBC/HPF 0-3 HPF (0-3); Specific Gravity, Urine 1.007 (1.002-1.036); Squamous Epithelial None Seen HPF (0-3); Urobilinogen 3 mg/dL (Less than 2); WBC/HPF 0-3 HPF (0-3)
[2024-04-08 23:35] LABS: Urine Culture Reflex No No
[2024-04-09] MEDS ORDERED: Aspirin Chewable 81 MG TAB ONE ×2 (01:23→12:14)
[2024-04-09 02:27] LABS: Troponin I Less than 0.010 ng/mL (< 0.028)
[2024-04-09 06:09] LABS: Troponin I Less than 0.010 ng/mL (< 0.028)
[2024-04-09] MEDS ORDERED: Acetaminophen 650 MG Suppository PR PRN (08:00)
[2024-04-09] MEDS ORDERED: Aspirin 81 mg Enteric Coated Tablet ONE (08:25)
[2024-04-09] MEDS ORDERED: Pantoprazole 40 MG VIAL ONE (08:26)
[2024-04-09] MEDS ORDERED: Dicyclomine 20 MG TAB ONE (08:26)
[2024-04-09] MEDS: Aspirin Chewable 81 MG TAB PO SCH (08:44)
[2024-04-09] MEDS: Dicyclomine 10 MG CAP PO SCH (08:44)
[2024-04-09] MEDS: Pantoprazole 40 MG VIAL IVP SCH (08:44)
[2024-04-09 09:39] LABS: Troponin I Less than 0.010 ng/mL (< 0.028)
[2024-04-09] MEDS ORDERED: Electrolyte Replacement Protocol FS SCH (10:30)
[2024-04-09] MEDS ORDERED: Apixaban 5 MG TAB ONE (12:15)
[2024-04-09 12:16] LABS: Troponin I Less than 0.010 ng/mL (< 0.028)
[2024-04-09] MEDS ORDERED: Amlodipine 5 MG TAB ONE ×2 (12:17→17:25)
[2024-04-09 12:27] LABS: Magnesium 1.9 mg/dL (1.6-2.6)
[2024-04-09] MEDS ORDERED: HYDROcodone/Acetaminophen 10/325 mg Tablet ONE (12:28)
[2024-04-09] MEDS: Amlodipine 5 MG TAB PO SCH ×2 (12:30→17:32)
[2024-04-09] MEDS ORDERED: hydrALAZINE 20 MG/ML VIAL ONE ×2 (12:39→17:08)
[2024-04-09] MEDS: hydrALAZINE 20 MG/ML VIAL SLOW IVP SCH ×2 (12:40→17:32)
[2024-04-09] MEDS ORDERED: Amlodipine 10 MG TAB PO SCH (12:45)
[2024-04-09] MEDS: HYDROcodone/Acetaminophen 10/325 mg Tablet PO PRN (12:52)
[2024-04-09] MEDS: Apixaban 5 MG TAB PO SCH (12:56)
[2024-04-09] MEDS: Sodium Chloride 0.9% 1,000 ML IV SCH (13:01)
[2024-04-09] MEDS ORDERED: Metoclopramide HCl 10 MG (2 mL) VIAL ONE (16:39)
[2024-04-09] MEDS: Metoclopramide HCl 10 MG (2 mL) VIAL IVP SCH (16:40)
[2024-04-09 19:23] VITALS: BMI 38.4
[2024-04-09] MEDS: Magnesium 2 GM/50 ML(in water) 2 GM in Premix 1 BAG IVPB SCH (20:28)
[2024-04-09] MEDS ORDERED: Nitroglycerin 0.4 MG TAB (25 Tab Bottle) SL PRN (22:34)
[2024-04-09] MEDS ORDERED: Albuterol 200 PUFF (6.7GM INHALER) INH PRN (22:34)
[2024-04-09] MEDS: Pregabalin 50 MG CAP PO SCH (23:12)
[2024-04-09] MEDS: Zolpidem Tartrate 5 MG TAB PO PRN (23:12)
[2024-04-09] MEDS: rOPINIRole HCl 2 MG TAB PO SCH (23:12)
[2024-04-10] MEDS: FLU (Fluad Triv) TS24-25 (65UP)/MF59C/PF 45 MCG/0.5 ML Syringe IM ONE (01:48)
[2024-04-10 04:40] LABS: Influenza A by NAA Not Detected (NotDetected); Influenza B by NAA Not Detected (NotDetected); RSV by NAA Not Detected (NotDetected); SARS-CoV-2 NAA Rapid Test Not Detected (NotDetected)
[2024-04-10 04:46] LABS: #Basophils 0.06 10x3/uL (0.0-0.2); %Basophils 0.6 % (0.0-1.0); %Eosinophils 1.6 % (0.0-10.0); %Lymphocytes 21.5 % (21.0-51.0); %Monocytes 9.8 % (0.0-10.0); %Neutrophils 65.8 % (42.0-75.0); Hematocrit 44.9 % (36.0-47.0); Hemoglobin 14.8 g/dL (12.0-16.0); Mean Corpuscular Hemoglobin 30.5 pg (27.0-31.0); Mean Corpuscular Volume 92.6 fL (78.0-98.0); Mean Platelet Volume 10.8 fL (7.4-10.4); Platelet Count 160 10x3/uL (130-400); RBC Distribution Width 13.7 % (11.5-14.5); Red Blood Cell (RBC) Count 4.85 mill/uL (4.20-5.40)
[2024-04-10 04:57] LABS: Anion Gap 16 mmol/L (10-20); BUN (Urea Nitrogen) 10 mg/dL (9.8-20.1); Calc. Creatinine Clearance 108 mL/min (70-130); Calcium 8.8 mg/dL (7.8-10.44); Carbon Dioxide 21 mmol/L (23-31); Cardiac Risk 3.2 (Less than 4.5); Chloride 106 mmol/L (98-107); Cholesterol 115 mg/dl (< 200 Desired); Estimated GFR 78; Glucose 105 mg/dL (83-110); HDL Cholesterol 36 mg/dL (>60 Neg Risk); LDL Cholesterol, Calculated 65 mg/dL; Magnesium 2.3 mg/dL (1.6-2.6); Potassium 4.5 mmol/L (3.5-5.1); Sodium 138 mmol/L (136-145); Triglycerides 69 mg/dL (Less than 150)
[2024-04-10] MEDS: Mometasone 100 MCG HFA INHALER (RT USE) INH SCH (07:11)
[2024-04-10] MEDS: Lisinopril 20 MG TAB PO SCH (08:23)
[2024-04-10] MEDS: Aripiprazole 2 MG TAB PO SCH (08:23)
[2024-04-10] MEDS: Pregabalin 50 MG CAP PO SCH (08:24)
[2024-04-10] MEDS: Trospium 20 MG TAB PO SCH (08:24)
[2024-04-10] MEDS: Sucralfate 1 GM/10 ML UDCUP PO SCH (08:24)
[2024-04-10] MEDS: hydrOXYzine 10 MG TAB PO SCH (08:24)
[2024-04-10] MEDS: Levothyroxine Sodium 25 MCG TAB PO SCH (08:24)
[2024-04-10] MEDS: Amlodipine 5 MG TAB PO SCH (08:24)
[2024-04-10] MEDS: Diclofenac 1% 50 GM TOPICAL GEL TP SCH (08:25)
[2024-04-10 10:47] VITALS: BMI 38.4
[2024-04-10] MEDS: Acetaminophen 325 MG TAB PO PRN (11:08)
[2024-04-10] MEDS: rOPINIRole HCl 2 MG TAB PO SCH (20:22)
[2024-04-11 05:49] LABS: #Basophils 0.06 10x3/uL (0.0-0.2); %Basophils 0.8 % (0.0-1.0); %Eosinophils 3.5 % (0.0-10.0); %Lymphocytes 30.8 % (21.0-51.0); %Monocytes 9.6 % (0.0-10.0); %Neutrophils 54.5 % (42.0-75.0); Hematocrit 38.8 % (36.0-47.0); Hemoglobin 12.9 g/dL (12.0-16.0); Mean Corpuscular HGB CONC 33.2 g/dL (32.0-36.0); Mean Corpuscular Hemoglobin 30.8 pg (27.0-31.0); Mean Corpuscular Volume 92.6 fL (78.0-98.0); Mean Platelet Volume 10.3 fL (7.4-10.4); Platelet Count 209 10x3/uL (130-400); RBC Distribution Width 13.7 % (11.5-14.5); Red Blood Cell (RBC) Count 4.19 mill/uL (4.20-5.40)
[2024-04-11 06:03] LABS: Anion Gap 8 mmol/L (10-20); BUN (Urea Nitrogen) 19 mg/dL (9.8-20.1); Calc. Creatinine Clearance 94 mL/min (70-130); Calcium 8.3 mg/dL (7.8-10.44); Carbon Dioxide 25 mmol/L (23-31); Chloride 108 mmol/L (98-107); Estimated GFR 66; Glucose 144 mg/dL (83-110); Potassium 3.6 mmol/L (3.5-5.1); Sodium 137 mmol/L (136-145)
[2024-04-11] MEDS: Potassium Chloride 20 MEQ TAB PO SCH (09:20)
[2024-04-11] MEDS: Cyclobenzaprine 10 MG TAB PO PRN (22:40)
[2024-04-11] MEDS: Calcium Carbonate 500 MG ChewTAB PO PRN (22:41)
[2024-04-11] MEDS: Ondansetron PF 4 MG/2 ML Vial IVP PRN (22:41)
[2024-04-11] MEDS: Morphine 2 MG/ML VIAL SLOW IVP SCH (23:31)
[2024-04-12] MEDS: Levothyroxine Sodium 25 MCG TAB PO SCH (06:06)
[2024-04-12 06:58] LABS: Anion Gap 14 mmol/L (10-20); BUN (Urea Nitrogen) 18 mg/dL (9.8-20.1); Calc. Creatinine Clearance 102 mL/min (70-130); Calcium 8.7 mg/dL (7.8-10.44); Carbon Dioxide 20 mmol/L (23-31); Chloride 107 mmol/L (98-107); Estimated GFR 72; Glucose 140 mg/dL (83-110); Potassium 4.7 mmol/L (3.5-5.1); Sodium 136 mmol/L (136-145); Troponin I Less than 0.010 ng/mL (< 0.028)
[2024-04-12 08:24] LABS: #Basophils 0.05 10x3/uL (0.0-0.2); %Basophils 0.4 % (0.0-1.0); %Eosinophils 1.8 % (0.0-10.0); %Monocytes 6.5 % (0.0-10.0); %Neutrophils 72.9 % (42.0-75.0); Hematocrit 43.5 % (36.0-47.0); Hemoglobin 14.3 g/dL (12.0-16.0); Mean Corpuscular HGB CONC 32.9 g/dL (32.0-36.0); Mean Corpuscular Hemoglobin 30.6 pg (27.0-31.0); Mean Corpuscular Volume 93.1 fL (78.0-98.0); Mean Platelet Volume 9.7 fL (7.4-10.4); Platelet Count 226 10x3/uL (130-400); RBC Distribution Width 13.8 % (11.5-14.5); Red Blood Cell (RBC) Count 4.67 mill/uL (4.20-5.40)
[2024-04-12] MEDS: Magnesium 2 GM/50 ML(in water) 2 GM in Premix 1 BAG IVPB SCH (09:10)
[2024-04-12] MEDS: Polyethylene Glycol 3350 17 GM Packet PO PRN (15:59)
[2024-04-13 06:16] VITALS: TEMP 98.3
[2024-04-13 08:35] VITALS: BP 126/81
== END 2024-04-13 17:36 | DRG 392 ==
LOC: ERS 19:19 → ERHOLD 04-09 01:01 → 2NO 04-09 18:03 → OBSVTOIN 04-10 13:59 → T4-B 04-10 16:27
PROVIDERS: ADMIT Student in an Organized Health Care Education/Training Program; ATTEND Internal Medicine
DX: K52.9 Noninfective gastroenteritis and colitis, unspecified (principal); G89.4 Chronic pain syndrome; E03.9 Hypothyroidism, unspecified; F41.9 Anxiety disorder, unspecified; F32.A Depression, unspecified; I10 Essential (primary) hypertension; G40.909 Epilepsy, unspecified, not intractable, without status epilepticus; Z91.041 Radiographic dye allergy status; Z91.013 Allergy to seafood; Z90.49 Acquired absence of other specified parts of digestive tract; Z98.890 Other specified postprocedural states; Z86.718 Personal history of other venous thrombosis and embolism; Z79.01 Long term (current) use of anticoagulants; Z79.899 Other long term (current) drug therapy; K21.9 Gastro-esophageal reflux disease without esophagitis; Z79.82 Long term (current) use of aspirin
CPT/HCPCS: 0241U; 36415; 36416; 71045; 74176; 80048; 80053; 80061; 81001; 83690; 83735; 84484; 85025; 93005; 93010; 94760; 96374; 96375; 96376; G0378; J0360; J2272; J2405; J2470; J2765; J3475; J3490; J7030

== ENCOUNTER 2024-05-27 16:14 | Inpatient (IN) | payer MEDICARE ==
[~2024-05-27 16:14] MED LIST: Iopamidol-370 76% 500 ML MDV (1 ML CHARGE) ONE
[2024-05-27 17:30] LABS: #Basophils 0.06 10x3/uL (0.0-0.2); %Basophils 1.2 % (0.0-1.0); %Eosinophils 2.5 % (0.0-10.0); %Lymphocytes 22.3 % (21.0-51.0); %Monocytes 7.1 % (0.0-10.0); %Neutrophils 66.5 % (42.0-75.0); Hematocrit 44.5 % (36.0-47.0); Hemoglobin 14.6 g/dL (12.0-16.0); Mean Corpuscular HGB CONC 32.8 g/dL (32.0-36.0); Mean Corpuscular Hemoglobin 30.2 pg (27.0-31.0); Mean Corpuscular Volume 92.1 fL (78.0-98.0); Mean Platelet Volume 10.1 fL (7.4-10.4); Platelet Count 162 10x3/uL (130-400); Red Blood Cell (RBC) Count 4.83 mill/uL (4.20-5.40)
[2024-05-27] MEDS ORDERED: Ketorolac Tromethamine 30 MG (1 mL) VIAL ONE (17:41)
[2024-05-27 17:59] LABS: ALT (SGPT) 11 U/L (8-55); AST (SGOT) 20 U/L (5-34); Albumin 3.7 g/dL (3.4-4.8); Alkaline Phosphatase 68 U/L (40-110); Anion Gap 16 mmol/L (10-20); BUN (Urea Nitrogen) 9 mg/dL (9.8-20.1); Bilirubin, Total 1.6 mg/dL (0.2-1.2); CK (CPK) 35 U/L (29-168); Calc. Creatinine Clearance 0 mL/min (70-130); Calcium 9.1 mg/dL (7.8-10.44); Carbon Dioxide 24 mmol/L (23-31); Chloride 107 mmol/L (98-107); Estimated GFR 76; Globulin 2.5 g/dL (2.4-3.5); Glucose 131 mg/dL (83-110); Magnesium 1.8 mg/dL (1.6-2.6); Potassium 3.8 mmol/L (3.5-5.1); Protein, Total 6.2 g/dL (5.8-8.1); Sodium 143 mmol/L (136-145)
[2024-05-27 18:36] LABS: Bilirubin Negative (Negative); Blood, Urine Negative (Negative); CAUTI Indications for Culture Dysuria,urgency,freq; Clarity Clear (Clear); Glucose, Urine (Dipstick) Normal (Negative); Ketone, Urine 10 mg/dL (Negative); Leukocyte Negative Leu/uL (Negative); Nitrite Negative (Negative); Protein, Urine (Dipstick) Negative (Neg-Trace); RBC/HPF 0-3 HPF (0-3); Squamous Epithelial 0-3 HPF (0-3); Urobilinogen Normal mg/dL (Less than 2); WBC/HPF 0-3 HPF (0-3)
[2024-05-27 18:37] LABS: Bacteria/HPF Rare-Few HPF (None Seen)
[2024-05-27 18:38] LABS: Urine Culture Reflex No No
[2024-05-27] MEDS ORDERED: Morphine 4 MG/ML VIAL ONE (19:10)
[2024-05-27] MEDS ORDERED: Ondansetron PF 4 MG/2 ML Vial ONE (19:10)
[2024-05-27] MEDS ORDERED: methylPREDNISolone Sod Succ 40 MG VIAL ONE (19:21)
[2024-05-27] MEDS ORDERED: Aspirin 81 mg Enteric Coated Tablet ONE (19:21)
[2024-05-27] MEDS ORDERED: Nitroglycerin 0.4 MG TAB 1 EACH ONE (19:21)
[2024-05-27] MEDS ORDERED: Famotidine/PF 20 mg/2ml Vial ONE (19:21)
[2024-05-27] MEDS ORDERED: diphenhydrAMINE 50 MG/ML VIAL ONE (19:21)
[2024-05-27] MEDS ORDERED: Furosemide 40 MG (4 mL) VIAL ONE (19:21)
[2024-05-27] MEDS ORDERED: Ondansetron ODT 4 MG TAB PO PRN (20:46)
[2024-05-27 21:16] LABS: Troponin I 0.018 ng/mL (< 0.028)
[2024-05-27 21:50] VITALS: BMI 36.6
[2024-05-27] MEDS: Acetaminophen 325 MG TAB PO PRN (22:00)
[2024-05-27] MEDS ORDERED: Nitroglycerin 0.4 MG TAB (25 Tab Bottle) SL PRN (22:29)
[2024-05-27] MEDS ORDERED: Albuterol 200 PUFF (6.7GM INHALER) INH PRN (22:29)
[2024-05-27] MEDS: hydrALAZINE 20 MG/ML VIAL SLOW IVP SCH (22:33)
[2024-05-27] MEDS: Lisinopril 10 MG TAB PO SCH (22:50)
[2024-05-27] MEDS: Pregabalin 50 MG CAP PO SCH (22:50)
[2024-05-27] MEDS: Apixaban 5 MG TAB PO SCH (22:50)
[2024-05-27] MEDS: rOPINIRole HCl 1 MG TAB PO SCH (22:51)
[2024-05-28] MEDS: Zolpidem Tartrate 5 MG TAB PO PRN (00:42)
[2024-05-28 05:21] LABS: #Basophils Less than 0.03 10x3/uL (0.0-0.2); #Eosinophils Less than 0.03 10x3/uL (0.0-0.7); %Basophils 0.3 % (0.0-1.0); %Lymphocytes 10.5 % (21.0-51.0); %Monocytes 1.2 % (0.0-10.0); %Neutrophils 87.2 % (42.0-75.0); Hematocrit 44.9 % (36.0-47.0); Hemoglobin 14.9 g/dL (12.0-16.0); Mean Corpuscular HGB CONC 33.2 g/dL (32.0-36.0); Mean Corpuscular Hemoglobin 30.5 pg (27.0-31.0); Mean Platelet Volume 10.8 fL (7.4-10.4); Platelet Count 194 10x3/uL (130-400); Red Blood Cell (RBC) Count 4.88 mill/uL (4.20-5.40)
[2024-05-28] MEDS: Levothyroxine Sodium 25 MCG TAB PO SCH (05:36)
[2024-05-28 05:43] LABS: Anion Gap 17 mmol/L (10-20); BUN (Urea Nitrogen) 10 mg/dL (9.8-20.1); Calc. Creatinine Clearance 98 mL/min (70-130); Carbon Dioxide 23 mmol/L (23-31); Chloride 104 mmol/L (98-107); Estimated GFR 74; Glucose 205 mg/dL (83-110); Potassium 3.7 mmol/L (3.5-5.1); Sodium 140 mmol/L (136-145)
[2024-05-28] MEDS ORDERED: Ipratropium/Albuterol 3 ML NEB NEB PRN (08:21)
[2024-05-28] MEDS: Amlodipine 5 MG TAB PO SCH (09:38)
[2024-05-28] MEDS: Apixaban 5 MG TAB PO SCH (09:38)
[2024-05-28] MEDS: Aripiprazole 2 MG TAB PO SCH (09:38)
[2024-05-28] MEDS: Diclofenac 1% 50 GM TOPICAL GEL TP SCH (09:39)
[2024-05-28] MEDS: Lisinopril 10 MG TAB PO SCH (09:39)
[2024-05-28] MEDS: Furosemide 40 MG (4 mL) VIAL SLOW IVP SCH (09:39)
[2024-05-28] MEDS: Pregabalin 50 MG CAP PO SCH (09:40)
[2024-05-28] MEDS: traMADol HCl 50 MG TAB PO PRN (09:41)
[2024-05-28 12:51] VITALS: BMI 36.5
[2024-05-28] MEDS: Zolpidem Tartrate 5 MG TAB PO SCH (20:55)
[2024-05-28] MEDS: rOPINIRole HCl 1 MG TAB PO SCH (20:55)
[2024-05-28] MEDS: HYDROcodone/Acetaminophen 10/325 mg Tablet PO PRN (20:56)
[2024-05-30] MEDS: Tamsulosin HCl 0.4 MG CAP PO SCH (01:56)
[2024-05-31] MEDS: Senokot S 8.6-50 MG TAB PO PRN (09:12)
[2024-06-01 11:20] VITALS: BP 148/84; TEMP 97.4
== END 2024-06-01 11:00 | DRG 305 ==
LOC: ERS 16:14 → 2NO 20:31 → OBSVTOIN 05-28 12:38 → T4-A 05-30 15:58
PROVIDERS: ADMIT Student in an Organized Health Care Education/Training Program; ATTEND Hospitalist
DX: I16.0 Hypertensive urgency (principal); I16.1 Hypertensive emergency; G89.4 Chronic pain syndrome; G47.00 Insomnia, unspecified; F41.9 Anxiety disorder, unspecified; F32.A Depression, unspecified; Z91.041 Radiographic dye allergy status; Z88.8 Allergy status to other drugs, medicaments and biological substances; Z88.0 Allergy status to penicillin; E03.9 Hypothyroidism, unspecified; G40.909 Epilepsy, unspecified, not intractable, without status epilepticus; Z98.890 Other specified postprocedural states; Z90.49 Acquired absence of other specified parts of digestive tract; Z79.899 Other long term (current) drug therapy; K21.9 Gastro-esophageal reflux disease without esophagitis; Z98.51 Tubal ligation status; Z86.718 Personal history of other venous thrombosis and embolism; R91.1 Solitary pulmonary nodule
CPT/HCPCS: 36415; 51701; 70450; 71045; 71275; 72040; 72125; 80048; 80053; 81001; 82550; 83605; 83735; 83880; 84484; 85025; 85379; 87040; 87086; 93005; 94760; 96374; 96375; 96376; G0378; J0360; J1200; J1885; J1940; J2272; J2405; J2919; J3490; Q9967